=== PATIENT | female | born 1945 | race Caucasian/White ===

== ENCOUNTER 2016-10-04 11:11 | Inpatient (IN) | payer MEDICARE, OTHER ==
[~2016-10-04] VITALS: Ht 152.4 cm; Wt 62.1 kg
[2016-10-04 11:42] LABS: HEMOGLOBIN 11.7 gm/dl (12.3-15.3); RED BLOOD COUNT 3.85 M/UL (4.00-5.10); WHITE BLOOD COUNT 6.3 K/UL (4.5-11.0)
[2016-10-04 12:52] LABS: BUN/CREATININE RATIO 13 (0-10)
[2016-10-05] MEDS ORDERED: TOPROL XL50 MG PO (00:57)
[2016-10-05] MEDS ORDERED: PRILOSEC OTC20 MG PO (00:58)
[2016-10-05] MEDS ORDERED: LEVAQUIN500 MG PO (00:58)
[2016-10-05] MEDS ORDERED: PREDNISONE10 MG PO (00:58)
[2016-10-05] MEDS ORDERED: TORADOL 10 MG T10 MG PO (00:59)
[2016-10-05] MEDS ORDERED: NEURONTIN 400400 MG PO (00:59)
[2016-10-05] MEDS ORDERED: VENTOLIN/PROVE0.5 ML INH (01:01)
[2016-10-05] MEDS ORDERED: PERCOCET 5-3251 EACH PO (01:02)
[2016-10-05 05:04] LABS: HEMOGLOBIN 11.5 gm/dl (12.3-15.3); RED BLOOD COUNT 3.83 M/UL (4.00-5.10); WHITE BLOOD COUNT 5.8 K/UL (4.5-11.0)
[2016-10-05 05:24] LABS: BUN/CREATININE RATIO 12 (0-10)
[2016-10-06 06:48] LABS: HEMOGLOBIN 11.2 gm/dl (12.3-15.3); RED BLOOD COUNT 3.74 M/UL (4.00-5.10)
[2016-10-06 06:52] LABS: WHITE BLOOD COUNT 9.4 K/UL (4.5-11.0)
[2016-10-06 07:09] LABS: BUN/CREATININE RATIO 18 (0-10)
[2016-10-07 06:59] LABS: RED BLOOD COUNT 3.63 M/UL (4.00-5.10)
[2016-10-07 07:14] LABS: BUN/CREATININE RATIO 25 (0-10)
[2016-10-08] MEDS ORDERED: LEVAQUIN500 MG PO (12:39)
[2016-10-08] MEDS ORDERED: PULMICORT0.25 MG/1 INH (12:40)
[2016-10-08] MEDS ORDERED: FOSAMAX70 MG PO (12:45)
[2016-10-08] MEDS ORDERED: ADVAIR HFA 115/12 GM INH (12:52)
[2016-10-08] MEDS ORDERED: ALPRAZOLAM0.5 MG PO (12:56)
== END 2016-10-08 14:15 | disposition home or self-care (01) | DRG 189 ==
LOC: ER1 11:11 → ZEROF 18:34 → MED SURG 4 20:00 → ZEROF 20:00 → MED SURG 4 10-05 00:19
PROVIDERS: Emergency Medicine; ADMIT Internal Medicine
DX: J96.01 Acute respiratory failure with hypoxia (principal); J18.9 Pneumonia, unspecified organism; J44.1 Chronic obstructive pulmonary disease with (acute) exacerbation; J98.11 Atelectasis; J44.0 Chronic obstructive pulmonary disease with (acute) lower respiratory infection; I10 Essential (primary) hypertension; F17.210 Nicotine dependence, cigarettes, uncomplicated; Z91.09 Other allergy status, other than to drugs and biological substances; E87.6 Hypokalemia; G25.81 Restless legs syndrome; D64.9 Anemia, unspecified; K21.9 Gastro-esophageal reflux disease without esophagitis; Z79.899 Other long term (current) drug therapy; Z88.1 Allergy status to other antibiotic agents; Z88.8 Allergy status to other drugs, medicaments and biological substances
CPT/HCPCS: 36415; 71010; 71020; 80048; 80053; 82550; 82553; 83605; 83735; 83874; 83880; 84100; 84132; 84484; 85025; 85027; 87040; 93005; 94640; 94664; 96374; 99285; J1650; J1956; J2920; J2930; J7030; J7050; Q9963